=== PATIENT | female | born 1985 | race Caucasian/White ===

== ENCOUNTER 2017-10-18 11:12 | Observation (INO) | payer MEDICAID ==
[~2017-10-18] VITALS: Ht 149.9 cm; Wt 53.5 kg
[2017-10-18] MEDS ORDERED: PREN1TAB78 PO (11:54)
== END 2017-10-18 13:30 | disposition home or self-care (01) ==
LOC: L&D 11:12
PROVIDERS: ADMIT Specialist; ATTEND Specialist
DX: O26.892 Other specified pregnancy related conditions, second trimester (principal); N89.8 Other specified noninflammatory disorders of vagina; Z3A.20 20 weeks gestation of pregnancy
CPT/HCPCS: 76805; 76817; 99281; G0378

== ENCOUNTER → 2020-03-14 | Outpatient (CLI) | payer MEDICAID ==
[~2020-03-14] MED LIST: PREN1TAB78 PO
== END | disposition home or self-care (01) ==
LOC: LAB 09:08
PROVIDERS: ATTEND Obstetrics & Gynecology
DX: Z20.828 Contact with and (suspected) exposure to other viral communicable diseases (principal)
CPT/HCPCS: 87426